=== PATIENT | male | born 1960 | race Caucasian/White ===

== ENCOUNTER 2016-05-02 10:19 | Emergency (ER) | payer BC ==
[2016-05-02 11:28] VITALS: BP 148/89
[2016-05-02] MEDS ORDERED: Ibuprofen TAB* 600 MG PO ONE (13:34)
--- NOTE | 2016-05-02 14:01 | UC ---
Complaint Male HPI - HPI Summary HPI Summary: 55 male presents today complaining of hesitancy, weak stream and straining that started 3-4 days ago. Patient states it seemed to have gotten worse yesterday afternoon 05/01/16. He has been also experiencing vague lower back pain. He has been able to void small amounts twice today however it is very difficult. He can feel pressure over his bladder. Denies pain, blood, discharge, and fever/ chills. He admits to a history of enlarged prostate and prostatitis a few years back. However he has not had his prostate checked within the last 2 years due to change in location and no primary care provider or urologist. Admits to mild symptoms of difficulty voiding 3-4 weeks ago that resolved on their own after taking some Ibuprofen. He has tried taking Ibuprofen for this episode however has has not seemed to have much relief. No PMHx. He has never smoked tobacco. Has no trouble with bowel movements and denies saddle anesthesia. - History of Current Complaint Chief Complaint: UCGU Stated Complaint: COMPLAINT Time Seen by Provider: 05/02/16 13:11 Hx Obtained From: Patient Onset/Duration: Sudden Onset, Lasting Days, Worse Since Timing: Constant Severity Initially: Moderate Severity Currently: Severe Pain Intensity: 5 Pain Scale Used: 0-10 Numeric Location: Suprapubic Character: Constant Pressure Aggravating Factor(s): Voiding, Straining Associated Signs And Symptoms: Negative: Dysuria, Constipation, Nausea, Vomiting (# Of Episodes =), Penile Swelling - Allergies/Home Medications Allergies/Adverse Reactions: Allergies Allergy/AdvReac Type Severity Reaction Status Date / Time Ciprofloxacin [From Cipro] Allergy GI Upset Verified 05/02/16 11:18 Iodine Allergy See Comment Verified 05/02/16 11:18 Shellfish Allergy Allergy Vomiting Verified 05/02/16 11:18 Antihistamines Allergy See Comment Uncoded 05/02/16 11:18 Sulfa Allergy Hives Uncoded 05/02/16 11:18 Erythromycin AdvReac GI Upset Uncoded 05/02/16 11:18 Home Medications: Home Medications Cyanocobalamin [B12] 1 tab WEEKLY 05/02/16 [History Confirmed 05/02/16] PMH/Surg Hx/FS Hx/Imm Hx Endocrine History Of: Denies: Diabetes, Thyroid Disease Cardiovascular History Of: Reports: Cardiac Disorders - Palpitations in past Denies: Hypertension Respiratory History Of: Denies: COPD, Asthma GI/ History Of: Denies: Ulcer - Surgical History Surgical History: Yes Surgery Procedure, Year, and Place: Right index finger tendon repair 1979 - Family History Known Family History: Positive: None - Social History Alcohol Use: Rare Alcohol Amount: small amount at dinner on occasion Substance Use Type: None Smoking Status (MU): Never Smoked Tobacco Review of Systems Constitutional: Negative Skin: Negative Eyes: Negative ENT: Negative Cardiovascular: Negative Gastrointestinal: Negative Genitourinary: Other - hesitancy, strainging, difficulty voiding, urinary retention Motor: Negative Neurovascular: Negative Musculoskeletal: Negative Neurological: Negative Psychological: Negative All Other Systems Reviewed And Are Negative: Yes Physical Exam Triage Information Reviewed: Yes Appearance: Well-Appearing, No Pain Distress, Well-Nourished Vital Signs: Initial Vital Signs Temp 98.3 F 05/02/16 11:20 Pulse 61 05/02/16 11:20 Resp 18 05/02/16 11:20 BP 148/89 05/02/16 11:20 Pulse Ox 100 05/02/16 11:20 Vital Signs Reviewed: Yes Eyes: Positive: Conjunctiva Clear Neck: Positive: Supple, Nontender Respiratory: Positive: Chest non-tender, Lungs clear, Normal breath sounds Cardiovascular: Positive: RRR, No Murmur, Pulses Normal, Brisk Capillary Refill Abdomen Description: Positive: Nontender - pressure on palpation of suprapubic area, mild distention noted. no pain. denies changes to external genitalia., No Organomegaly, Soft, Distended. Negative: Bruit, CVA Tenderness (R), CVA Tenderness (L) Bowel Sounds: Positive: Present Musculoskeletal Exam: Normal Neurological Exam: Normal Psychological Exam: Normal Skin Exam: Normal Complaint Male Course/Dx - Course Course Of Treatment: Urinalysis obtained. unremarkable. Dr Blancas was called and discussed patient with him. He suggested he be seen today at his office. Ibuprofen was given in office to help with symptoms in the meantime. - Differential Dx/Diagnosis Differential Diagnosis/HQI/PQRI: Prostatitis, Pyelonephritis, Urinary Tract Infection, Other - BPH, urinary retention Provider Diagnoses: urinary retention, urinary hesitancy and straining, difficulty voiding - Physician Notifications Discussed Patient Care With: Dr Yamil Blancas Time Discussed With Above Provider: 13:59 Instructed by Provider To: Send To Office Now - Patient will be sent to his office from Discharge - Discharge Plan Condition: Stable Disposition: OTHER Discharge Disposition Comment: Appointment with Dr Blancas today 05/02/16 right from Patient Education Materials: Urinary Retention in Men (ED) Referrals: Millicent NGUYEN,Jose Francisco Olvera [Primary Care Provider] - Yamil Blancas MD [Medical Doctor] - Additional Instructions: Please see Dr Blancas today 05/02/16 for further evaluation. Take ibuprofen as needed unless otherwise directed by Dr Blancas.
== END 2016-05-02 14:30 ==
LOC: UCEAST 10:19
DX: R33.9 Retention of urine, unspecified (principal); R39.11 Hesitancy of micturition; R39.16 Straining to void; M54.5 Low back pain; Z88.1 Allergy status to other antibiotic agents; Z88.8 Allergy status to other drugs, medicaments and biological substances
CPT/HCPCS: 81002; 99212; A9270-GY; G0463

== ENCOUNTER → 2018-01-24 19:52 | Emergency (ER) | payer BC ==
[~2018-01-24 19:52] MED LIST: Tetan/Diph/Pertus SYR(Tdap)* 0.5 ML SYR(BOOSTRIX) use SYR IM ONE
[2018-01-24 20:03] VITALS: BP 180/110
--- NOTE | 2018-01-24 20:25 | ED ---
Laceration/Wound HPI - HPI Summary HPI Summary: A 57 y/o M presents to ED with traumatic lac to R-side of nose bridge onset 1- 1.5 hours ago. Pt was sawing a piece of pipe, and it slipped and hit him in the face. Pt says the pipe had a rough edge, and he is concerned something might have gotten into the area of the wound. Lac is not actively bleeding at bedside and is not wrapped. Pt states it did bleed heavily at time of injury. Associated sx: swelling to nose. He denies taking blood thinner or HTN medications. Last tetanus: unknown. - History of Current Complaint Stated Complaint: FACIAL INJURY Time Seen by Provider: 01/24/18 20:13 Hx Obtained From: Patient, Family/Electronic Systems Technician - brother and sister in law present , Medical Records Onset/Duration: Sudden Onset, Lasting Hours, Still Present Onset Severity: Moderate Current Severity: Mild Pain Intensity: 2 Pain Scale Used: 0-10 Numeric Associated Signs & Symptoms: Pain - and edema - Allergy/Home Medications Allergies/Adverse Reactions: Allergies Allergy/AdvReac Type Severity Reaction Status Date / Time MS Ciprofloxacin [From Cipro] Allergy GI Upset Verified 05/02/16 11:18 MS Iodine [Iodine] Allergy See Comment Verified 05/02/16 11:18 MS Shellfish Allergy Allergy Vomiting Verified 05/02/16 11:18 [Shellfish Allergy] Antihistamines Allergy See Comment Uncoded 05/02/16 11:18 Sulfa Allergy Hives Uncoded 05/02/16 11:18 Erythromycin AdvReac GI Upset Uncoded 05/02/16 11:18 PMH/Surg Hx/FS Hx/Imm Hx Previously Healthy: Yes Endocrine/Hematology History: Denies: Hx Diabetes, Hx Thyroid Disease Cardiovascular History: Denies: Hx Hypertension Respiratory History: Denies: Hx Asthma, Hx Chronic Obstructive Pulmonary Disease (COPD) GI History: Denies: Hx Ulcer - Surgical History Surgery Procedure, Year, and Place: Right index finger tendon repair 1979 Infectious Disease History: No Infectious Disease History: Denies: Hx Hepatitis, Hx Human Immunodeficiency Virus (HIV), History Other Infectious Disease, Traveled Outside the [place] in Last 30 Days - Family History Known Family History: Positive: Cardiac Disease, Diabetes - Social History Occupation: Employed Full-time Lives: With Family Alcohol Use: Rare Alcohol Amount: small amount at dinner on occasion Substance Use Type: Reports: None Hx Tobacco Use: No Smoking Status (MU): Never Smoked Tobacco Review of Systems Negative: Fever Skin: Other - two lacs to R-side of nose Positive: Bruising - nose All Other Systems Reviewed And Are Negative: Yes Physical Exam - Summary Physical Exam Summary: Appearance: Well appearing, no pain distress Skin: warm, dry, reflects adequate perfusion Head/face: normal Eyes: EOMI, BARRERA ENT: mucous membranes moist. Parallel lacerations to R side of nose: 1st is 8mm long laterally; 2nd is more of a skin tear and 4mm in length and there is a single, pin-point dark spot in center of skin tear. The larger wound has an abrasion that extends to tip of the nose. Ecchymosis to bridge of nose. No deformity to nose. No blood in the nose. No evidence of puncture through the nose. Neck: supple, non-tender Respiratory: CTA, breath sounds present Cardiovascular: RRR, pulses symmetrical Abdomen: non-tender, soft Bowel Sounds: present Musculoskeletal: normal, strength/ROM intact Neuro: normal, sensory motor intact, A&Ox3 Triage Information Reviewed: Yes Vital Signs On Initial Exam: Initial Vitals Temp Pulse Resp BP Pulse Ox 99.7 F 68 20 180/110 99 01/24/18 19:59 01/24/18 19:59 01/24/18 19:59 01/24/18 19:59 01/24/18 19:59 Vital Signs Reviewed: Yes Diagnostics - Vital Signs Vital Signs Temp Pulse Resp BP Pulse Ox 01/24/18 19:59 99.7 F 68 20 180/110 99 - Laboratory Lab Statement: Any lab studies that have been ordered have been reviewed, and results considered in the medical decision making process. Laceration Repair Course/Dx - Course Course Of Treatment: Tetanus was updated here. There is no deformity only slight swelling over the bridge of the nose. X-ray not indicated. The longer laceration was cleaned and repaired with Dermabond. There is no evidence for foreign body in this area. There is a punctate dark area in the smaller wound that may represent a very tiny foreign body however it looks more like it pore or blackhead. It is far too tiny and too superficial to image with ultrasound. I placed bacitracin ointment over the area which is mostly skin avulsion. He will use a drawing salve such as black salve on it. He will return with any concerns for infection, worsening or other concerns which were discussed with him. - Differential Dx Differental Diagnoses: Other - Retained foreign body, nasal fracture, nasal contusion, laceration - Clinical Impression Provider Diagnoses: Nasal contusion, Nasal laceration Discharge - Sign-Out/Discharge Documenting (check all that apply): Patient Departure - DC - Discharge Plan Condition: Improved Disposition: HOME Patient Education Materials: Facial Laceration (ED) Referrals: Negin Talbot MD [Primary Care Provider] - Additional Instructions: Return with signs of infection, worse or other concerns. Use Neosporin or a drawling salve such as black salve to the area. - Billing Disposition and Condition Condition: IMPROVED Disposition: Home - Attestation Statements Document Initiated by Scribe: Yes Documenting Scribe: Raman Farrar Provider For Whom Scribe is Documenting (Include Credential): Dr. Justin Justin MD Scribe Attestation: IRaman, scribed for Dr. Justin Justin MD on 01/24/18 at 2159. Scribe Documentation Reviewed: Yes Provider Attestation: The documentation as recorded by the Raman klein accurately reflects the service I personally performed and the decisions made by me, Dr. Justin Justin MD
== END | disposition home or self-care (01) ==
LOC: ED 19:52
DX: S01.21XA Laceration without foreign body of nose, initial encounter (principal); W22.8XXA Striking against or struck by other objects, initial encounter; Y92.9 Unspecified place or not applicable; Z23 Encounter for immunization; Z88.2 Allergy status to sulfonamides; Z88.1 Allergy status to other antibiotic agents; Z88.3 Allergy status to other anti-infective agents; Z91.013 Allergy to seafood
CPT/HCPCS: 90471; 90715; 99282

== ENCOUNTER 2018-04-28 15:16 | Emergency (ER) | payer BC ==
[2018-04-28] MEDS ORDERED: Nitroglycerin TAB 0.4 MG* 0.4 MG TAB SL ONE (16:12)
[2018-04-28] MEDS ORDERED: Aspirin 81 mg CHEW TAB* 81 MG TAB.CHEW PO ONE (16:13)
--- NOTE | 2018-04-28 16:13 | ED ---
HPI Chest Pain - HPI Summary HPI Summary: A 57 y/o male presents to [facility] with a chief complaint of chest pain since 04/27. He reports that his chest pain is more on his right side between his shoulder blade and ribs. Per triage note, "Chest pain started yesterday as a dull pressure all day yesterday and today the pain is sharp but moving around his ribs and up to his shoulder blades and clavicles. Pt denies SOB, diaphoresis or palpitations. Pt states shallow respirations that for his history are a sign of stress Family history of heart disease on father's side" He rates his pain as a 5/10 in severity. He has a Hx of chest pain but denies a Hx of blood clots in his lungs or his legs, HTN, HLD, or DM. He denies any alcohol or drug use and denies smoking. He reports that he has had 3 stress tests, but his last stress test was 8 years [employer]. He has a FHx of cardiac disease on his father's side, but he claims that they were in their 60s and all smoked. However his brother, who is younger than the patient, had a NC, and a stent put in. - History of Current Complaint Chief Complaint: EDChestPainROMI Time Seen by Provider: 04/28/18 15:42 Hx Obtained From: Patient Onset/Duration: Started Hours Ago, Still Present Timing: Constant, Lasting Hours Initial Severity: Mild Current Severity: Mild Pain Intensity: 5 Pain Scale Used: 0-10 Numeric Chest Pain Location: Diffuse - right sided Chest Pain Radiates: No Character: Sharp/Stabbing Aggravating Factor(s): Nothing Alleviating Factor(s): Nothing - Allergy/Home Medications Allergies/Adverse Reactions: Allergies Allergy/AdvReac Type Severity Reaction Status Date / Time MS Ciprofloxacin [From Cipro] Allergy GI Upset Verified 04/28/18 15:20 MS Iodine [Iodine] Allergy See Comment Verified 04/28/18 15:20 MS Shellfish Allergy Allergy Vomiting Verified 04/28/18 15:20 [Shellfish Allergy] Antihistamines Allergy See Comment Uncoded 04/28/18 15:20 Sulfa Allergy Hives Uncoded 04/28/18 15:20 Erythromycin AdvReac GI Upset Uncoded 04/28/18 15:20 PMH/Surg Hx/FS Hx/Imm Hx Endocrine/Hematology History: Denies: Hx Diabetes, Hx Thyroid Disease Cardiovascular History: Denies: Hx Hypertension Respiratory History: Denies: Hx Asthma, Hx Chronic Obstructive Pulmonary Disease (COPD) GI History: Denies: Hx Ulcer - Surgical History Surgery Procedure, Year, and Place: Right index finger tendon repair 1979 Infectious Disease History: No Infectious Disease History: Denies: Hx Hepatitis, Hx Human Immunodeficiency Virus (HIV), History Other Infectious Disease, Traveled Outside the [place] in Last 30 Days - Family History Known Family History: Positive: Cardiac Disease, Diabetes - Social History Alcohol Use: Rare Alcohol Amount: small amount at dinner on occasion Substance Use Type: Reports: None Hx Tobacco Use: No Smoking Status (MU): Never Smoked Tobacco Review of Systems Negative: Fever, Skin Diaphoresis Positive: Chest Pain. Negative: Palpitations Negative: Shortness Of Breath Negative: Edema All Other Systems Reviewed And Are Negative: Yes Physical Exam - Summary Physical Exam Summary: GENERAL: Patient is a well-developed and nourished M who is lying comfortable in the stretcher. Patient is not in any acute respiratory distress. HEAD AND FACE: Normocephalic EYES: PERRLA, EOMI x 2. EARS: Hearing grossly intact. MOUTH: Oropharynx within normal limits. NECK: Supple, trachea is midline, no adenopathy, no JVD, no carotid bruit. CHEST: Symmetric, no tenderness at palpation LUNGS: Clear to auscultation bilaterally. No wheezing or crackles. CVS: Regular rate and rhythm, S1 and S2 present, no murmurs or gallops appreciated. ABDOMEN: Soft, non-tender. Bowel sounds are normal. No abdominal abnormal pulsations. EXTREMITIES: Full ROM in all major joints, no edema, no cyanosis or clubbing. NEURO: Alert and oriented x 3. No acute neurological deficits. Speech is normal and follows commands. SKIN: Dry and warm Triage Information Reviewed: Yes Vital Signs On Initial Exam: Initial Vitals Temp Pulse Resp BP Pulse Ox 97.4 F 62 19 174/113 98 04/28/18 15:18 04/28/18 15:18 04/28/18 15:18 04/28/18 15:18 04/28/18 15:18 Vital Signs Reviewed: Yes Diagnostics - Vital Signs Vital Signs Temp Pulse Resp BP Pulse Ox 04/28/18 15:18 97.4 F 62 19 174/113 98 - Laboratory Result Diagrams: 04/28/18 11:30 04/28/18 11:30 Lab Statement: Any lab studies that have been ordered have been reviewed, and results considered in the medical decision making process. - Radiology CXR Radiology Interpretation Completed By: Radiologist Summary of Radiographic Findings: No active cardiopulmonary disease. ED physician has reviewed this imaging report. - EKG 15:30 Cardiac Rate: Bradycardia - 54 bpm EKG Rhythm: Sinus Bradycardia Summary of EKG Findings: Sinus bradycardia at 54 bpm with LVH. Re-Evaluation - Re-Evaluation First Eval Re-Evaluation Time: 18:05 Change: Unchanged Comment: He reports that his chest pain changed to a more dull pain. I recommended admission but the patient wants to wait for his second troponin. Chest Pain Course/Dx - Course Course Of Treatment: A 57 y/o male presents to [facility] with a chief complaint of chest pain since 04/27/18. The physical exam was unremarkable. EKG at 15:30 shows Sinus bradycardia at 54 bpm with LVH. CXR was negative. Lab results obtained and are WNL. Troponin of 0.00 at 11:30. In the ED course the patient was given aspirin PO, Maalox plus PO, Lidocaine PO and Nitroglycerin SL. This patient will be signed out to Dr. Knott upon shift change at 19:00 04/28/18 pending second troponin. - Diagnoses Provider Diagnoses: Chest pain Discharge - Sign-Out/Discharge Documenting (check all that apply): Sign-Out Patient Signing out patient TO: Aiden Knott - pending 2nd troponin Patient Received Moderate/Deep Sedation with Procedure: No - Discharge Plan Condition: Stable Referrals: Negin Talbot MD [Primary Care Provider] - (1-3 days) Additional Instructions: Follow up with your primary care physician in 1-3 days. RETURN TO THE EMERGENCY DEPARTMENT FOR CHANGING OR WORSENING SYMPTOMS - Billing Disposition and Condition Condition: STABLE - Attestation Statements Document Initiated by Scribe: Yes Documenting Scribe: Ascencion Ochoa Provider For Whom Scribe is Documenting (Include Credential): Suze Salinas MD Scribe Attestation: Ascencion Sanabria, scribed for Suze Salinas MD on 04/28/18 at [id number]. Scribe Documentation Reviewed: Yes Provider Attestation: The documentation as recorded by the scribe, Ascencion Ochoa accurately reflects the service I personally performed and the decisions made by me, Jenna Salinas MD Status of Scribkarthik Document: Viewed
[2018-04-28 16:25] LABS: ABS Basophils 0 10^3/ul (0-0.2); ABS Eosinophils 0.2 10^3/ul (0-0.6); ABS Lymphocytes 1.5 10^3/ul (1.0-4.8); ABS Monocytes 0.4 10^3/ul (0-0.8); ABS Neutrophils 4.7 10^3/ul (1.5-7.7); ABS Nucleated RBC 0 10^3/ul; Eosinophil % 3.3 %; Hematocrit 47 % (42-52); Hemoglobin 16.1 g/dl (14.0-18.0); Lymphocyte % 21.7 %; Mean Corpuscular HGB Conc 34 g/dl (31-36); Mean Corpuscular Hemoglobin 31 pg (27-31); Mean Corpuscular Volume 89 fL (80-94); Mean Platelet Volume 6.9 fL (7.4-10.4); Nucleated Red Blood Cells % 0.1; Platelet Count 222 10^3/ul (150-450); Red Blood Count 5.27 10^6/ul (4.00-5.40); Red Cell Distribution Width 14 % (10.5-15); White Blood Count 6.8 10^3/ul (3.5-10.8)
[2018-04-28 16:29] LABS: Activated Partial Thrombo Time 32.5 seconds (26.0-36.3)
[2018-04-28 16:41] LABS: Albumin 4.6 g/dL (3.2-5.2); Albumin/Globulin Ratio 1.6 (1-3); BUN/Creatinine Ratio 11.6 (8-20); Calcium 9.2 mg/dL (8.6-10.3); EGFR African American 98.2 (>60); EGFR Non-African American 81.1 (>60); Globulin 2.9 g/dL (2-4); Potassium 3.8 mmol/L (3.5-5.0); Total Bilirubin 0.3 mg/dL (0.2-1.0); Total Protein 7.5 g/dL (6.4-8.9)
[2018-04-28] MEDS ORDERED: Al Hydrox/Mg Hydrox/Simet LIQ* 30 ML UDC PO ONE (16:44)
[2018-04-28] MEDS ORDERED: Lidocaine 2% VISCOUS* 15 ML UDC PO ONE (16:44)
--- NOTE | 2018-04-28 21:08 | ED ---
Progress - Progress Note Progress Note: 2100 - Pt is feeling better and is agreeable with going home. Heart score is 2. Course/Dx - Course Course Of Treatment: A 57 y/o male presents to [facility] with a chief complaint of chest pain since 04/27/18. The physical exam was unremarkable. EKG at 15:30 shows Sinus bradycardia at 54 bpm with LVH. CXR was negative. Lab results obtained and are WNL. Troponin of 0.00 at 11:30. In the ED course the patient was given aspirin PO, Maalox plus PO, Lidocaine PO and Nitroglycerin SL. This patient will be signed out to Dr. Knott upon shift change at 19:00 04/28/18 pending second troponin. - Diagnoses Provider Diagnoses: Chest pain Discharge - Sign-Out/Discharge Documenting (check all that apply): Patient Departure Patient Received Moderate/Deep Sedation with Procedure: No - Discharge Plan Condition: Good Disposition: HOME Patient Education Materials: Noncardiac Chest Pain (ED) Referrals: Negin Talbot MD [Primary Care Provider] - (1-3 days) Additional Instructions: Follow up with your primary care physician in 1-3 days. RETURN TO THE EMERGENCY DEPARTMENT FOR CHANGING OR WORSENING SYMPTOMS - Billing Disposition and Condition Condition: GOOD Disposition: Home - Attestation Statements Document Initiated by Scribe: Yes Documenting Scribe: Malina Rosales Provider For Whom Ambrose is Documenting (Include Credential): Aiden Knott MD. Scribe Attestation: Malina Sanabria scribed for Aiden Knott MD. on 04/29/18 at 0232. Scribe Documentation Reviewed: Yes Provider Attestation: The documentation as recorded by the Malina klein accurately reflects the service I personally performed and the decisions made by , Aiden Knott MD. Status of Scribe Document: Viewed
[2018-04-28 21:16] VITALS: BP 137/93
== END 2018-04-28 21:17 | disposition home or self-care (01) ==
LOC: ED 15:16
DX: R07.9 Chest pain, unspecified (principal); Z88.2 Allergy status to sulfonamides
CPT/HCPCS: 36415; 71046; 80053; 83605; 83880; 84484; 85025; 85379; 85610; 85730; 93005; 99283; A9270-GY